=== PATIENT | male | born 1965 ===

== ENCOUNTER 2019-10-05 10:21 | Day surgery (SDC) | payer OTHER ==
[~2019-10-05 10:21] MED LIST: AVALIDE 300-121 EACH PO; LEVOTHYROXINE25 MCG PO
== END 2019-10-05 19:00 | disposition home or self-care (01) ==
LOC: CIR.AMB 10:21 → ADM 11:30 → CIR.AMB 17:30
PROVIDERS: ATTEND Colon & Rectal Surgery
DX: K60.3 Anal fistula (principal); K60.1 Chronic anal fissure; K64.2 Third degree hemorrhoids